=== PATIENT | female | born 1960 | race Asian ===

== ENCOUNTER 2021-12-13 09:44 | Emergency (ER) | payer MEDICAID ==
[~2021-12-13] VITALS: Ht 165.1 cm; Wt 54.4 kg
--- NOTE | 2021-12-13 09:55 | NUR ---
Gregorio corbin in ED - 12/13/21 at 0955 by [email or web address] EVA BENJAMIN EXAMINING PT IN TENT
[2021-12-13 10:09] VITALS: BP_SYST 125
--- NOTE | 2021-12-13 10:17 | NUR ---
Patient triaged and placed in waiting room. VSS and patient appears in no acute distress at this time. Accompanied by Son in Law, awaiting available bed, and MD notified of need for MSE.
--- NOTE | 2021-12-13 10:20 | NUR ---
Patient to ER bed H1 to gown for evaluation. Side rails up.
--- NOTE | 2021-12-13 10:23 | NUR ---
Gregorio corbin in [facility] - 12/13/21 at 1026 by [email or web address] Medication reconciliation completed with information provided by PATIENT'S DAUGHTER. Any prior medication reconciliation on file was reviewed and corrected.
--- NOTE | 2021-12-13 10:26 | NUR ---
ER DR. BENJAMIN EXAMINING PT
--- NOTE | 2021-12-13 10:40 | NUR ---
LAB AT BEDSIDE FOR BLOOD DRAW
[2021-12-13 11:13] LABS: CREATININE 0.69 mg/dL (0.55-1.30); POTASSIUM 4.1 mmol/L (3.5-5.1)
[2021-12-13] MEDS ORDERED: NAPR-688 PO (11:23)
[2021-12-13] MEDS ORDERED: LORA-258 PO (11:23)
--- NOTE | 2021-12-13 11:30 | NUR ---
Patient given written and verbal discharge instructions and verbalizes understanding. ER MD discussed with patient the results and treatment provided. Patient in stable condition. ID arm band removed. Rx of LORAZEPAM AND NAPROXEN given. Patient educated on pain management and to follow up with PMD. Pain Scale 0/10. Opportunity for questions provided and answered. Medication side effect fact sheet provided.
[2021-12-13 11:31] VITALS: BP_SYST 127
== END 2021-12-13 11:31 | disposition home or self-care (01) ==
LOC: SED 09:44
DX: G62.9 Polyneuropathy, unspecified (principal); R20.2 Paresthesia of skin; Z79.899 Other long term (current) drug therapy
CPT/HCPCS: 36415; 80048; 99283

== ENCOUNTER 2021-12-20 19:18 | Emergency (ER) | payer MEDICAID ==
[~2021-12-20] VITALS: Ht 162.6 cm; Wt 52.2 kg
[~2021-12-20 19:18] MED LIST: LORA-258 PO; NAPR-688 PO
[2021-12-20 19:40] VITALS: BP_SYST 129
--- NOTE | 2021-12-20 19:48 | NUR ---
Pt came from home with c/o left ear pain that started a couple hours ago. Pain rated 1/10, non-radiating and inconsistent. VSS. Patient placed in waiting room until bed is available.
--- NOTE | 2021-12-20 22:45 | NUR ---
PATIENT CALLED, NO ANSWER
--- NOTE | 2021-12-20 22:57 | NUR ---
PATIENT CALLED TO BED, NO ANSWER.
--- NOTE | 2021-12-20 23:06 | NUR ---
PATIENT CALLED, NO ANSWER. PATIENT ELOPED. Addendum: 12/20/21 at 2335 by [email or web address] PATIENT CALLED TO ROOM, LEFT WITHOUT BEING SEEN
== END 2021-12-20 23:05 | disposition left against medical advice (07) ==
LOC: SED 19:18
DX: H92.02 Otalgia, left ear (principal); Z53.21 Procedure and treatment not carried out due to patient leaving prior to being seen by health care provider